=== PATIENT | male | born 1995 | race Caucasian/White ===

== ENCOUNTER 2017-06-12 12:30 | Emergency (ER) | payer OTHER ==
[~2017-06-12] VITALS: Ht 190.5 cm; Wt 86.2 kg
[~2017-06-12 12:30] MED LIST: Bactrim Ds Tab1 EACH PO; HIBICLENS120 ML EXT
== END 2017-06-12 13:08 | disposition home or self-care (01) ==
LOC: ER 12:30
DX: S00.411A Abrasion of right ear, initial encounter (principal); Z79.899 Other long term (current) drug therapy; W22.8XXA Striking against or struck by other objects, initial encounter
CPT/HCPCS: 90471; 90714; 99283